=== PATIENT | female | born 1945 ===

== ENCOUNTER 2022-05-18 06:20 | Day surgery (SDC) | payer OTHER ==
[~2022-05-18 06:20] MED LIST: GLUMETZA500 MG PO
== END 2022-05-18 11:00 | disposition home or self-care (01) ==
LOC: CIR.AMB 06:20
PROVIDERS: ATTEND Surgery Surgery of the Hand
DX: M65.312 Trigger thumb, left thumb (principal); M67.844 Other specified disorders of tendon, left hand; Z20.822 Contact with and (suspected) exposure to COVID-19; Z88.2 Allergy status to sulfonamides; E78.00 Pure hypercholesterolemia, unspecified